=== PATIENT | female | born 1945 | race Caucasian/White ===

== ENCOUNTER → 2018-01-09 16:13 | Outpatient (CLI) | payer MEDICARE, OTHER, SELFPAY ==
--- NOTE | 2018-01-09 | IMM_PTH ---
PATIENT: ESTRELLA GRAJEDA LOC: [facility] U#:[id number] AGE/SX: 79/F ROOM: RE01/09/[address]: Dr. Jeremiah Soriano MD : 1945 BED: DIS: SPEC #: [id number] RECD: 01/13/18 11:35 STATUS: MARIBETH SHERYL #: [id number] ANTONY: 01/09/18 00:[address]: Jeremiah Soriano DEPT: IMMUNOHISTOCHEMISTRY RECD BY: Dayana Berry Tissues: Stomach, NOS Procedures: H Pylori (initial) PHYSICIAN & INSTITUTION [place] [id number] SPECIMEN INFORMATION: Tissue Source: Antrum body biopsy Clinical Info: GERD Specimen Number: [id number] CPT code: 07326 METHODOLOGY: Deparaffinized sections of prefer/formalin-fixed tissue or PAP/DQ stained slides are incubated with monoclonal/polyclonal antibodies/oligonucleotide probes. Localization is made via biotin free immunoperoxidase method. Appropriate controls are performed and reacted as expected. Results on target cell population are indicated in the following table: RESULTS: ANTIBODY / CLONE RESULT H Pylori (polyclonal) negative These tests were developed and their performance characteristics determined by [facility]. They may not have been cleared or approved by the U.S. Food and Drug Administration. The FDA has determined that such clearance or approval is not necessary. INTERPRETATION: Antrum body, biopsy: Negative for Helicobacter pylori organisms. AM:martin 01/13/18
--- NOTE | 2018-01-09 08:52 | GASB_PTH ---
PATIENT: ESTRELLA GRAJEDA LOC: [facility] U#:[id number] AGE/SX: 79/F ROOM: RE01/09/[address]: Dr. Jeremiah Soriano MD : 1945 BED: DIS: SPEC #: [id number] RECD: 01/09/18 15:33 STATUS: MARIBETH SHERYL #: [id number] ANTONY: 01/09/18 08:[address]: Jeremiah Soriano DEPT: SURGICAL PATHOLOGY RECD BY: James Boyd ENTERED: 01/10/18 12:06 SP TYPE: Gastric Bx GRACIA DR: NICANOR Tissues: Gastric mucous membrane Procedures: Surgery Specimen Level IV HEADER OPERATION: EGD with biopsies PRE-OP DIAGNOSIS: GERD TISSUE SUBMITTED: Antrum body biopsies, rule out gastritis MICROSCOPIC DIAGNOSIS Gastric antrum, biopsy: Chronic active gastritis. AM:martin 01/13/18 COMMENT The results of immunohistochemistry for Helicobacter pylori will be reported separately ([id number]). MICROSCOPIC DESCRIPTION Slides are reviewed. GROSS DESCRIPTION Received in fixative is one container labeled with the patient's name and designated gastric antrum. The specimen consists of two irregular fragments of light pratt soft tissue that in aggregate measure 0.2 x 0.1 x 0.1 cm. The specimen is totally submitted in one cassette. / AM:martin 01/10/18 TC:2 [facility]: [id number]
== END ==
PROVIDERS: Visit Provider Internal Medicine Gastroenterology
DX: K29.50 Unspecified chronic gastritis without bleeding (principal); K21.9 Gastro-esophageal reflux disease without esophagitis
CPT/HCPCS: 88305; 88342

== ENCOUNTER → 2018-02-05 10:20 | Outpatient (CLI) | payer MEDICARE, OTHER, SELFPAY ==
--- NOTE | 2018-02-05 10:25 | HPBI_ITS ---
MAMMOGRAPHY - BILATERAL SCREENING REASON FOR EXAM: Female, 72 years old. Routine annual screening examination. PERTINENT HISTORY: Sister with breast cancer. Grandmother with breast cancer. TECHNIQUE: Digital bilateral breast giovana (3D mammographic acquisition) in the CC and MLO projections. 2-D mediolateral oblique (MLO) and craniocaudad (CC) views of both breasts were obtained. CAD: Full Field Digital Mammography with Computer Added Detection was performed. COMPARISON: Comparison is made with prior study dated February 04, 2017 and January 03, 2016. FINDINGS: Breast Composition: The breasts are almost entirely fatty. There are no dominant masses or suspicious calcifications. 2 tissue markers are seen in the central portion of the left breast. No other significant abnormalities are identified. There has been no significant change since the prior study. HPBI/SCREENING MAMM (CAD), BILAT IMPRESSION: Stable bilateral screening mammogram. Yearly follow-up mammogram recommended. (A) ASSESSMENT CATEGORY: BIRADS Category 2: Benign. A letter regarding these results will be sent to the patient by the facility within 30 days. Approximately 10% of breast cancers are not detected by mammography. A normal mammogram should not delay biopsy of a clinically suspicious abnormality. [id number] Electronically Signed: Daniel Barnes MD at 12:28 EST Tel [phone], Service support ,
--- NOTE | 2018-02-05 10:28 | HPBD_ITS ---
STUDY: DUAL ENERGY X-RAY ABSORPTIOMETRY / DXA REASON FOR EXAM: Female, 72 years old. The patient is postmenopausal. Loss of height. TECHNIQUE: Bone Mineral Density (BMD) measurements of lumbar spine and bilateral hips were obtained. COMPARISON: Comparison is made with prior study dated January 03, 2016. FINDINGS: Lumbar Spine (L1-L4): g/cm2 (1.021) / T-score (-1.5) / Z-score (0.2) Findings are suggestive of osteopenia with a moderate fracture risk. Left Femur Total: g/cm2 (0.790) / T-score (-1.7) / Z-score (-0.1) Left Femoral Neck: g/cm2 (0.76) / T-score (-2.7) / Z-score (-0.1) Right Femur Total: g/cm2 (0.847) / T-score (-1.3) / Z-score (0.4) Right Femoral Neck: g/cm2 (0.769) / T-score (-1.9) / Z-score (-0.1) The T-Scores on the most recent prior examination were: Lumbar Spine (L1-L4): There has been worsening of bone density since the previous examination. Left Femur Total: which represents a worsening of 2.5%. Right Femur Total: which represents a worsening of 0.9%. HPBD/Dexa Bone Density Study (HP) IMPRESSION: The patient is considered osteopenic as outlined below according to World Octavio Organization (WHO) criteria with a moderate fracture risk. There has been worsening of bone density since the previous examination. Reference Information: The T-score is the number of standard deviations above or below the standard which is normal for young adults at their peak bone mineral density. The World Health Organization (WHO) interprets the T-scores as follows: Above -1 Normal bone density Between -1 and -2.5 Osteopenia Equal to / or below -2.5 Osteoporosis As a practical clinical guideline, osteopenia may be graded as follows: Mild -1 through -1.5 Moderate -1.6 through -2.0 Severe -2.1 through -2.4 The Z-score is the number of standard deviations above or below age-matched controls. A Z-score of less than -1.5 would be considered abnormal. References: 1. NIH Osteoporosis and Related Bone Diseases http://www.osteo.org 2. International Society for Clinical Densitometry http://www.iscd.org 3. National Osteoporosis Foundation http://www.nof.org Electronically Signed: Daniel Barnes MD at 8:36 EST Tel [phone], Service support ,
== END ==
PROVIDERS: Family Provider Internal Medicine; PCP Internal Medicine; Visit Provider Internal Medicine
DX: Z12.31 Encounter for screening mammogram for malignant neoplasm of breast (principal); Z78.0 Asymptomatic menopausal state
CPT/HCPCS: 77063; 77067; 77080

== ENCOUNTER → 2018-04-01 07:45 | Outpatient (CLI) | payer MEDICARE, OTHER, SELFPAY ==
--- NOTE | 2018-04-01 07:48 | US_ITS ---
STUDY: ABDOMINAL ULTRASOUND REASON FOR EXAM: Female, 72 years old. Abdominal bloating. TECHNIQUE: Transabdominal ultrasound was performed with real-time and static reilly scale imaging. TECHNICAL QUALITY: Adequate. Examination limited by bowel gas. COMPARISON: None. FINDINGS: Liver: The liver measures 14.5 cm. There is increased echogenicity consistent with fatty infiltration. The bile ducts are within normal limits. There is hepatic color flow. The direction of portal flow is hepatopetal. There is no demonstrated mass lesion. Portal vein measurement: 10.2 mm Gallbladder: The patient is status post cholecystectomy. Common Bile Duct (C.B.D.): The common bile duct measures 3.6 mm. Pancreas: There is incomplete visualization of the pancreas. There is normal echogenicity of the visualized pancreas. There is no demonstrated pancreatic mass or cyst. Spleen: Normal size of the spleen. The spleen measures 8.5 x 4.2 x 4.2 cm. Right Kidney: Normal size of the right kidney. The right kidney measures 11.8 x 5.5 x 5.4 cm. Normal renal cortex. The right cortex measures 1.4 cm. 1.2 x 1.2 x 1.0 cm fluid-filled structure in the hilar aspect of the upper to mid pole could be a parapelvic cyst. There is also mild pelvicalyceal ectasia, and this could be a component of the right collecting system. Left Kidney: Normal size of the left kidney. The left kidney measures 11.4 x 4.9 x 5.9 cm. Normal renal cortex. The left cortex measures 1.6 cm. There is no demonstrated renal mass or cyst. There is mild left pelvocaliectasis. Aorta: Proximal 2.0 x 1.5 cm, mid 1.6 x 1.5 cm, distal 1.4 x 1.3 cm. I.V.C.: The IVC is patent. There is no ascites. US/Abdomen Complete IMPRESSION: 1. Mild bilateral renal pelvocaliectasis. A source and level of possible low-grade partial obstruction is not demonstrated. If clinically suspicious, this might be further characterized with CT. 2. Fatty infiltration of the liver. Note focal hepatic mass. 3. Prior cholecystectomy. No bile duct dilatation. 4. Limited visualization of the pancreas due to overlying bowel gas. 5. Unremarkable spleen and great vessels. Electronically Signed: Pipe Dye MD at 14:25 EDT , Service support ,
== END ==
PROVIDERS: Family Provider Internal Medicine; PCP Internal Medicine; Visit Provider Internal Medicine
DX: R14.0 Abdominal distension (gaseous) (principal)
CPT/HCPCS: 76700

== ENCOUNTER → 2018-04-03 13:28 | Outpatient (CLI) | payer MEDICARE, OTHER, SELFPAY ==
--- NOTE | 2018-04-03 13:29 | US_ITS ---
STUDY: ULTRASOUND OF THE FEMALE PELVIS - COMPLETE REASON FOR EXAM: Female, 72 years old. Abdominal bloating. Status post hysterectomy. TECHNIQUE: Transabdominal and Transvaginal TECHNICAL QUALITY: Adequate. COMPARISON: The FINDINGS: The uterus is surgically absent. No evidence of pelvic mass. The right ovary is visualized. The right ovary measures 2 x 1.6 x 1.6 cm. cm. There is no right ovarian cyst or ovarian mass. There is no visualized right adnexal mass or complex lesion. There is normal arterial and normal venous vascularity. The left ovary is visualized. The left ovary measures 1.5 x 1.1 x 0.9 cm cm. There is no left ovarian cyst or ovarian mass. There is no visualized left adnexal mass or complex lesion. There is normal arterial and normal venous vascularity. There is no fluid in the cul-de-sac. The urinary bladder appears grossly unremarkable. Polycystic ovary disease: No. US/Pelvic (Non ) IMPRESSION: 1. Status post hysterectomy. There is no evidence of pelvic mass. 2. Normal bilateral ovaries. Electronically Signed: Quinn Biswas DO at 14:37 EDT Tel [phone], Service support ,
--- NOTE | 2018-04-03 13:48 | US_ITS ---
STUDY: ULTRASOUND OF THE FEMALE PELVIS - COMPLETE REASON FOR EXAM: Female, 72 years old. Abdominal bloating. Status post hysterectomy. TECHNIQUE: Transabdominal and Transvaginal TECHNICAL QUALITY: Adequate. COMPARISON: The FINDINGS: The uterus is surgically absent. No evidence of pelvic mass. The right ovary is visualized. The right ovary measures 2 x 1.6 x 1.6 cm. cm. There is no right ovarian cyst or ovarian mass. There is no visualized right adnexal mass or complex lesion. There is normal arterial and normal venous vascularity. The left ovary is visualized. The left ovary measures 1.5 x 1.1 x 0.9 cm cm. There is no left ovarian cyst or ovarian mass. There is no visualized left adnexal mass or complex lesion. There is normal arterial and normal venous vascularity. There is no fluid in the cul-de-sac. The urinary bladder appears grossly unremarkable. Polycystic ovary disease: No. US/Transvaginal Non- IMPRESSION: 1. Status post hysterectomy. There is no evidence of pelvic mass. 2. Normal bilateral ovaries. Electronically Signed: Quinn Biswas DO at 14:37 EDT Tel [phone], Service support ,
== END ==
PROVIDERS: Family Provider Internal Medicine; PCP Internal Medicine; Visit Provider Internal Medicine
DX: R14.0 Abdominal distension (gaseous) (principal)
CPT/HCPCS: 76830; 76856

== ENCOUNTER → 2018-09-09 12:48 | Outpatient (CLI) | payer MEDICARE, OTHER, SELFPAY ==
[2018-09-09 14:05] LABS: ALB/GLOB Ratio 1.2 RATIO (0.9-2.4); AST(SGOT) 24 U/L (15-37); Alanine Aminotransfer ALT/SGPT 38 U/L (13-56); Albumin, Serum 3.9 g/dL (3.2-5.0); Alkaline Phosphatase 63 U/L (45-117); Anion Gap 9 (5-15); BUN 15 mg/dL (7-18); BUN/Creat Ratio 22.1 RATIO (10-20); Chloride 108 mmol/L (98-107); Creatinine, Serum 0.68 mg/dL (0.55-1.02); EST Glomerular Filtration Rate 90 mL/min (>60); Est Glom Filt Rate - Afr Amer 109 mL/min (>60); Globulin 3.3 g/dL (2.2-4.2); Glucose 94 mg/dL (74-106); Potassium 4.2 mmol/L (3.5-5.1); Protein, Total 7.2 g/dL (6.4-8.2); Sodium Level 140 mmol/L (136-145)
[2018-09-09 14:09] LABS: Hemoglobin A1c 5.6 % (4.2-6.3)
[2018-09-10 04:09] LABS: HEPATITIS B SURFACE AG 6510 Negative (Negative); Hepatitis C Ab <0.1 s/co ratio (0.0-0.9)
[2018-09-10 07:37] LABS: Hep B Surface Antibodies Reactive (.)
== END ==
PROVIDERS: Family Provider Internal Medicine; PCP Internal Medicine; Referring Provider Internal Medicine; Visit Provider Internal Medicine
DX: R73.09 Other abnormal glucose (principal); Z77.21 Contact with and (suspected) exposure to potentially hazardous body fluids
CPT/HCPCS: 36415; 80053; 83036; 86706; 86803; 87340

== ENCOUNTER → 2018-09-15 12:13 | Outpatient (CLI) | payer MEDICARE, OTHER, SELFPAY ==
--- NOTE | 2018-09-15 12:17 | RAD_ITS ---
STUDY: X-RAY CHEST REASON FOR EXAM: Female, 72 years old. Cough. TECHNIQUE: PA and lateral views of the chest. COMPARISON: December 04, 2011. FINDINGS: The lungs are clear and expanded. There is no demonstrated pleural abnormality. Normal size heart. Normal mediastinum and allison. Normal visualized pulmonary arteries. There is atherosclerotic calcification of the aortic arch with tortuosity. Normal visualized thoracic spine. There is degenerative osteoarthritis of the bilateral shoulders. There is no demonstrated abnormality of the visualized soft tissue structures of the upper abdomen. RAD/Chest PA and Lateral IMPRESSION: No acute cardiopulmonary disease or major interval change. Electronically Signed: Quinn Biswas DO at 23:52 EDT Tel [phone], Service support ,
== END ==
PROVIDERS: Family Provider Internal Medicine; PCP Internal Medicine; Referring Provider Internal Medicine; Visit Provider Internal Medicine
DX: R05 Cough (principal)
CPT/HCPCS: 71046

== ENCOUNTER → 2019-03-18 16:33 | Outpatient (CLI) | payer MEDICARE, OTHER, SELFPAY ==
[2019-03-23 12:06] LABS: Rubeola IgG Ab > 300.0 AU/mL (Immune >29.9)
== END ==
PROVIDERS: Family Provider Internal Medicine; PCP Internal Medicine; Referring Provider Internal Medicine; Visit Provider Internal Medicine
DX: Z01.84 Encounter for antibody response examination (principal)
CPT/HCPCS: 36415; 86765

== ENCOUNTER → 2019-03-26 | Outpatient (CLI) | payer MEDICARE, OTHER, SELFPAY ==
--- NOTE | 2019-03-26 08:53 | US_ITS ---
STUDY: ABDOMINAL ULTRASOUND - RIGHT UPPER QUADRANT REASON FOR VISIT: Female, 73 years old. History of fatty infiltration of the liver. TECHNIQUE: Ultrasound evaluation of the right upper quadrant was performed with real-time and static reilly-scale imaging. TECHNICAL QUALITY: Adequate. COMPARISON: Comparison is made with prior study dated April 01, 2018. FINDINGS: Liver: The liver measures 13.6 cm. There is increased echogenicity consistent with fatty infiltration. The bile ducts are within normal limits. There is hepatic color flow. The direction of portal flow is hepatopetal. There is no demonstrated mass lesion. Gallbladder: The patient is status post cholecystectomy. Common Bile Duct (C.B.D.): The common bile duct measures 5.2 mm. Pancreas: Normal size of the head, body and tail of the pancreas. There is normal echogenicity of the pancreas. There is no demonstrated pancreatic mass or cyst. Right Kidney: Normal size of the right kidney. The right kidney measures 10.5 cm x 5.7 cm x 5.0 cm. Normal renal cortex. The right cortex measures 1.4 cm. Stable 1.4 cm x 1 cm x 0.9 cm right parapelvic cyst. There is no right hydronephrosis. US/Liver IMPRESSION: Fatty infiltration of the liver. Status post cholecystectomy. Right parapelvic renal cyst. Electronically Signed: Daniel Barnes, at 12:43 EDT , Service support ,
== END | disposition home or self-care (01) ==
LOC: US 08:51
PROVIDERS: Family Provider Internal Medicine; PCP Internal Medicine; Referring Provider Internal Medicine; Visit Provider Internal Medicine
DX: K76.0 Fatty (change of) liver, not elsewhere classified (principal)
CPT/HCPCS: 76705

== ENCOUNTER → 2019-04-06 | Outpatient (CLI) | payer MEDICARE, SELFPAY, OTHER ==
--- NOTE | 2019-04-06 14:43 | CT_ITS ---
STUDY: CT CHEST WITHOUT CONTRAST REASON FOR EXAM: Female, 73 years old. Calcium scoring examination. Radiological over read. RADIATION DOSAGE (If Supplied By Facility): CTDIvol = ( 12.19 ) mGy, DLP = ( 170.66 ) mGycm TECHNIQUE: Transaxial imaging was performed without the administration of intravenous contrast material. Individualized dose optimization techniques were used for this CT. COMPARISON: None. FINDINGS: There is a 4.9 mm noncalcified nodule in the right middle lobe adjacent to the right minor fissure. A dedicated CT scan of the thorax is recommended for further evaluation. There is no demonstrated pleural abnormality. Normal heart and pericardium. There are multiple small lymph nodes within the mediastinum, which are normal in size and morphology most compatible with reactive lymph hyperplasia. Normal hilar regions. Normal unenhanced pulmonary arteries. There is atherosclerotic calcification of the aortic arch. Normal osseous structures. Small hiatal hernia. Fatty infiltration of the liver. CT/Limited Chest CT w/CCTA IMPRESSION: 4.9 mm noncalcified nodule in the right middle lobe adjacent to the right minor fissure as described. Correlation with a CT scan of the chest is recommended. Electronically Signed: Daniel Barnes, at 12:47 EDT , Service support ,
[2019-04-06 14:56] VITALS: BP 111/48; PULSE 61; RESP 16; O2SAT 98; BMI 29.8
--- NOTE | 2019-04-06 16:42 | CA.SCORE ---
Calcium Scoring Date of Study:: 04/06/19 Coronary Calcium Scoring: High-resolution Computed Tomographic imaging of the chest was performed on [04/06/2019 ], with particular attention paid to the coronary arteries. Images from the examination were analyzed for the presence and extent of coronary artery calcification , using coronary calcium quantification software. The patient tolerated the procedure well and there were no complications. The results of the coronary calcification analysis are provided below. - Findings Left Main (LM): 0 Left Anterior Descending (LAD): 0 Left Circumflex (LCX): 0 Right Coronary Artery (RCA): 0 Total Agatston Score: 0 Percentile Rankin - Conclusion Calcium Scoring Interpretation: Calcium Score Interpretation 0 No identifiable atherosclerotic plaque. Very low cardiovascular disease risk. <5% chance of presence coronary artery disease A Negative Examination 1-10 Minimal Plaque burden. Significant coronary artery disease very unlikely. 11-100 Mild plaque burden. Likely mild or minimal coronary atherosclerosis. 101-400 Moderate plaque burden Moderate non-obstructive coronary artery disease highly likely. Over 400 Extensive plaque burden. High likelihood of at least one significant coronary stenosis (>50% diameter) The total calcium score (0) is below the 25th percentile for women between the ages of 70 and 74. (Exact percentile calculated to be 0%; this means 0% of the population has a similar calcium score and 99% of the population is a higher calcium score than this patient.) A full evaluation of cardiac risk should include an assessment of all conventional risk factors, and the scores and percentile rankings reported herein should be evaluated in this context.
== END | disposition home or self-care (01) ==
LOC: CT 14:37
PROVIDERS: Family Provider Internal Medicine; PCP Internal Medicine; Referring Provider Internal Medicine; Visit Provider Internal Medicine
DX: R79.82 Elevated C-reactive protein (CRP) (principal)
CPT/HCPCS: 75571; 76380

== ENCOUNTER → 2019-04-09 | Outpatient (CLI) | payer MEDICARE, OTHER, SELFPAY ==
[2019-04-06 14:56] VITALS: BMI 29.8
--- NOTE | 2019-04-09 12:23 | BI_ITS ---
MAMMOGRAPHY - BILATERAL SCREENING REASON FOR EXAM: Female, 73 years old. Routine annual screening examination. PERTINENT HISTORY: Sisters with breast cancer. TECHNIQUE: Digital bilateral breast giovana (3D mammographic acquisition) in the CC and MLO projections. 2-D mediolateral oblique (MLO) and craniocaudad (CC) views of both breasts were obtained. CAD: Full Field Digital Mammography with Computer Added Detection was performed. COMPARISON: Comparison is made with prior study of February 05, 2018 and February 04, 2017. FINDINGS: Breast Composition: The breasts are almost entirely fatty. There are no dominant masses or suspicious calcifications. Stable benign-appearing bilateral axillary lymph nodes. Once again, 2 tissue markers are seen in the central aspect of the left breast. No other significant abnormalities are identified. There has been no significant change since the prior study. BI/SCREENING MAMM (CAD), BILAT IMPRESSION: Stable bilateral screening mammogram. Yearly follow-up mammogram recommended. (A) ASSESSMENT CATEGORY: BIRADS Category 2: Benign. A letter regarding these results will be sent to the patient by the facility within 30 days. Approximately 10% of breast cancers are not detected by mammography. A normal mammogram should not delay biopsy of a clinically suspicious abnormality. [id number] Electronically Signed: Daniel Barnes, at 13:46 EDT , Service support ,
== END | disposition home or self-care (01) ==
LOC: OPBI 12:20
PROVIDERS: Family Provider Internal Medicine; PCP Internal Medicine; Referring Provider Internal Medicine; Visit Provider Internal Medicine
DX: Z12.31 Encounter for screening mammogram for malignant neoplasm of breast (principal)
CPT/HCPCS: 77063; 77067

== ENCOUNTER → 2019-04-23 | Outpatient (CLI) | payer MEDICARE, OTHER, SELFPAY ==
[2019-04-06 14:56] VITALS: BMI 29.8
--- NOTE | 2019-04-23 16:51 | CT_ITS ---
STUDY: CT CHEST WITH CONTRAST REASON FOR EXAM: Female, 73 years old. Evaluation of nodule seen on calcium score evaluate study. RADIATION DOSAGE (If Supplied By Facility): CTDIvol = ( 15.18 ) mGy, DLP = ( 645.72 ) mGycm TECHNIQUE: Transaxial imaging was performed following intravenous administration of 100 IV Isovue 300. Individualized dose optimization techniques were used for this CT. COMPARISON: None. FINDINGS: There is a chronic appearing nodule overlying the anterior aspect of the right minor fissure as seen on series 4 image 54 measuring approximately 4 mm. There is no demonstrated pleural abnormality. Normal heart and pericardium. Normal mediastinum. Normal hilar regions. Normal enhanced pulmonary arteries. Normal aorta arch and descending thoracic aorta. There are no demonstrated pulmonary emboli. Normal osseous structures. There is no demonstrated abnormality of the visualized upper abdomen. CT/Chest WITH Contrast IMPRESSION: 1. Chronic appearing 4 mm nodule as described above. In the setting of smoking recommend follow-up in approximately 4-6 months otherwise no specific follow-up per Fleischner's criteria. No evidence of acute cardiopulmonary process. Electronically Signed: Valentino Wagner DO at 10:19 EDT , Service support ,
[2019-04-23 17:06] LABS: CREATININE FINGERSTICK 0.8 mg/dL (0.55-1.02); EGFR FINGERSTICK > 60.0000 mL/min (>60)
== END | disposition home or self-care (01) ==
LOC: CT 16:50
PROVIDERS: Family Provider Internal Medicine; PCP Internal Medicine; Referring Provider Internal Medicine; Visit Provider Internal Medicine
DX: R91.1 Solitary pulmonary nodule (principal)
CPT/HCPCS: 71260; Q9967

== ENCOUNTER → 2019-05-26 | Outpatient (CLI) | payer MEDICARE, OTHER, SELFPAY ==
[2019-04-06 14:56] VITALS: BMI 29.8
--- NOTE | 2019-05-26 12:50 | RAD_ITS ---
STUDY: X-RAY - RIGHT KNEE REASON FOR EXAM: Female, 73 years old. TECHNIQUE: view(s) of the knee. COMPARISON: None. FINDINGS: There is moderate osteoarthritis involving the joint including the lateral facet of the femoropatellar joint. No joint effusion seen. The examination is unchanged since February 06, 2017 RAD/Knee 4 or More Views IMPRESSION: Moderate osteoarthritis more in the lateral facet of the patellofemoral joint Electronically Signed: Amos Godwin, at 16:41 EDT Tel , Service support ,
--- NOTE | 2019-05-26 12:50 | RAD_ITS ---
STUDY: X-RAY - LEFT KNEE REASON FOR EXAM: Female, 73 years old. TECHNIQUE: 4 view(s) of the knee. COMPARISON: None. FINDINGS: There is minimal osteoarthritis arthritis involving the knee joint. But more osteoarthritis demonstrated in the patellofemoral joint particularly the lateral facet. No joint effusion seen RAD/Knee 4 or More Views IMPRESSION: Mild osteoarthritis of the joint and more so on the patellofemoral lateral facet osteoarthritis. Electronically Signed: Amos Godwin, at 16:37 EDT Tel , Service support ,
== END | disposition home or self-care (01) ==
LOC: HPRAD 12:45
PROVIDERS: Family Provider Internal Medicine; PCP Internal Medicine; Referring Provider Internal Medicine; Visit Provider Internal Medicine
DX: M25.561 Pain in right knee (principal); M25.562 Pain in left knee
CPT/HCPCS: 73564

== ENCOUNTER → 2019-12-01 11:26 | Outpatient (CLI) | payer MEDICARE, OTHER, SELFPAY ==
[2019-04-06 14:56] VITALS: BMI 29.8
[2019-12-01 14:43] LABS: Thyroid Stim Hormone (TSH) 1.01 uIU/mL (0.358-3.74)
== END ==
PROVIDERS: Family Provider Internal Medicine; PCP Internal Medicine; Referring Provider Nurse Practitioner; Visit Provider Nurse Practitioner
DX: R22.1 Localized swelling, mass and lump, neck (principal)
CPT/HCPCS: 36415; 84443

== ENCOUNTER → 2020-04-13 09:23 | Outpatient (CLI) | payer MEDICARE, OTHER, SELFPAY ==
[2019-04-06 14:56] VITALS: BMI 29.8
--- NOTE | 2020-04-13 09:27 | RAD_ITS ---
STUDY: X-RAY - LEFT HUMERUS REASON FOR EXAM: Female, 74 years old. FALL. PAINFUL MID ARM TECHNIQUE: AP and lateral view(s) of the humerus. COMPARISON: None. FINDINGS: Normal visualized humerus. There is no demonstrated fracture or osseous destructive process. There is no demonstrated soft tissue abnormality. RAD/Humerus min 2 Views IMPRESSION: Normal x-ray examination of the humerus. Electronically Signed: Daniel Barnes, at 9:43 EDT , Service support ,
== END ==
PROVIDERS: PCP Internal Medicine; Referring Provider Internal Medicine; Visit Provider Internal Medicine
DX: M79.602 Pain in left arm (principal)
CPT/HCPCS: 73060

== ENCOUNTER → 2020-05-04 09:01 | Outpatient (CLI) | payer MEDICARE, OTHER, SELFPAY ==
[2019-04-06 14:56] VITALS: BMI 29.8
--- NOTE | 2020-05-04 09:06 | US_ITS ---
STUDY: ABDOMINAL ULTRASOUND - RIGHT UPPER QUADRANT REASON FOR VISIT: Female, 74 years old FATTY LIVER TECHNIQUE: Ultrasound evaluation of the right upper quadrant was performed with real-time and static reilly-scale imaging. TECHNICAL QUALITY: Adequate. COMPARISON: Comparison is made with prior examination dated March 26, 2019. FINDINGS: Liver: The liver measures 16.3 cm. There is increased echogenicity consistent with fatty infiltration. The bile ducts are within normal limits. There is hepatic color flow. The direction of portal flow is hepatopetal. There is no demonstrated mass lesion. Gallbladder: The patient is status post cholecystectomy. Common Bile Duct (C.B.D.): The common bile duct measures 7.6 mm. Pancreas: Normal size of the head, body of the pancreas. The tail portion is obscured due to overlying bowel gas. There is normal echogenicity of the pancreas. There is no demonstrated pancreatic mass or cyst. Right Kidney: Normal size of the right kidney. The right kidney measures 10.7 cm x 5.2 cm x 5.8 cm. Normal renal cortex. The right cortex measures 1.7 cm. There is a 1 cm x 1.1 cm x 0.8 cm parapelvic cyst. There is no right hydronephrosis. US/Liver IMPRESSION: Fatty infiltration of the liver. Status post cholecystectomy. Right parapelvic renal cyst. Electronically Signed: Daniel Barnes, at 15:12 EDT , Service support ,
--- NOTE | 2020-05-04 09:07 | BI_ITS ---
MAMMOGRAPHY - BILATERAL SCREENING REASON FOR EXAM: Female, 74 years old. Routine annual screening examination. PERTINENT HISTORY: History of prior left stereotactic breast biopsies. Sister with breast cancer. Grandmother with breast cancer. TECHNIQUE: Digital bilateral breast arik (3D mammographic acquisition) in the CC and MLO projections. 2-D mediolateral oblique (MLO) and craniocaudad (CC) views of both breasts were obtained. CAD: Full Field Digital Mammography with Computer Added Detection was performed. COMPARISON: Comparison is made with prior study dated April 09, 2019 and February 05, 2018. FINDINGS: Breast Composition: The breasts are almost entirely fatty. There are no dominant masses or suspicious calcifications. Once again, there are 2 tissue clip marker is in the central aspect of the left breast. Stable benign appearing bilateral axillary lymph nodes. No other significant abnormalities are identified. There has been no significant change since the prior study. BI/SCREEN MAMM (CAD) W/ARIK BILAT IMPRESSION: Stable bilateral screening mammogram. Yearly follow-up mammogram recommended. (A) ASSESSMENT CATEGORY: BIRADS Category 2: Benign. A letter regarding these results will be sent to the patient by the facility within 30 days. Approximately 10% of breast cancers are not detected by mammography. A normal mammogram should not delay biopsy of a clinically suspicious abnormality. [id number] Electronically Signed: Daniel Barnes, at 11:09 EDT , Service support ,
--- NOTE | 2020-05-04 09:28 | BD_ITS ---
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 COMPARISON: Comparison is made with prior study dated February 05, 2018. FINDINGS: Lumbar Spine (L1-L4): g/cm2 (0.981) / T-score (-1.8) / Z-score (-0.1) Findings are suggestive of osteopenia with a moderate fracture risk. Left Femur Total: g/cm2 (0.812) / T-score (-1.6) / Z-score (0.2) Left Femoral Neck: g/cm2 (0.793) / T-score (-1.8) / Z-score (0.2) Right Femur Total: g/cm2 (0.812) / T-score (-1.6) / Z-score (0.2) Right Femoral Neck: g/cm2 (0.753) / T-score (-2.1) / Z-score (-0.1) The T-Scores on the most recent prior examination were: Lumbar Spine (L1-L4): There has been worsening of bone density since the previous examination. Left Femur Total: which represents an improvement of 2.8%. Right Femur Total: which represents a worsening of 4.1%. BD/Dexa Bone Density Study IMPRESSION: The patient is considered osteopenic as outlined below according to World Octavio Organization (WHO) criteria with a moderate fracture risk. There has been worsening of bone density since the previous examination. Reference Information: The T-score is the number of standard deviations above or below the standard which is normal for young adults at their peak bone mineral density. The World Health Organization (WHO) interprets the T-scores as follows: Above -1 Normal bone density Between -1 and -2.5 Osteopenia Equal to / or below -2.5 Osteoporosis As a practical clinical guideline, osteopenia may be graded as follows: Mild -1 through -1.5 Moderate -1.6 through -2.0 Severe -2.1 through -2.4 The Z-score is the number of standard deviations above or below age-matched controls. A Z-score of less than -1.5 would be considered abnormal. References: 1. NIH Osteoporosis and Related Bone Diseases http://www.osteo.org 2. International Society for Clinical Densitometry http://www.iscd.org 3. National Osteoporosis Foundation http://www.nof.org Electronically Signed: Daniel Barnes, at 7:59 EDT , Service support ,
--- NOTE | 2020-05-04 10:05 | CT_ITS ---
STUDY: CT CHEST WITHOUT CONTRAST REASON FOR EXAM: Female, 74 years old. LUNG NODULE FOLLOW UP, NO NEW PROBLEMS OR PAIN RADIATION DOSAGE (If Supplied By Facility): CTDIvol = ( 12.42 ) mGy, DLP = ( 446.90 ) mGycm TECHNIQUE: Transaxial imaging was performed without the administration of intravenous contrast material. Multiplanar coronal and sagittal images were reformatted. Individualized dose optimization techniques were used for this CT. COMPARISON: Comparison is made with prior study dated April 23, 2019. FINDINGS: Small benign appearing bilateral axillary lymph nodes. Stable 4 mm noncalcified nodule adjacent to the right minor fissure. There is no demonstrated pleural abnormality. Normal heart and pericardium. There are multiple small lymph nodes within the mediastinum, which are normal in size and morphology most compatible with reactive lymph hyperplasia. Normal hilar regions. Normal unenhanced pulmonary arteries. There is atherosclerotic calcification of the aortic arch . There are multi-level degenerative changes of the thoracic spine. Small hiatal hernia. CT/Chest without Contrast IMPRESSION: Stable 4 mm nodule in the right minor fissure as described. A follow-up scan in 12 months is recommended for further evaluation. Electronically Signed: Daniel Barnes, at 14:39 EDT , Service support ,
== END ==
PROVIDERS: PCP Internal Medicine; Referring Provider Internal Medicine; Visit Provider Internal Medicine
DX: Z12.31 Encounter for screening mammogram for malignant neoplasm of breast (principal); R91.1 Solitary pulmonary nodule; K76.0 Fatty (change of) liver, not elsewhere classified; Z78.0 Asymptomatic menopausal state; M79.602 Pain in left arm
CPT/HCPCS: 71250; 76705; 77063; 77067; 77080

== ENCOUNTER → 2020-06-27 11:17 | Outpatient (CLI) | payer MEDICARE, OTHER, SELFPAY ==
[2019-04-06 14:56] VITALS: BMI 29.8
--- NOTE | 2020-06-27 11:20 | RAD_ITS ---
STUDY: X-RAY - LUMBAR SPINE REASON FOR EXAM: Female, 74 years old. LOW BACK PAIN. NUMBNESS RIGHT LEG LATERAL TECHNIQUE: 4 view(s) of the lumbar spine were obtained. COMPARISON: None FINDINGS: Normal lumbar lordosis. There is no substantial scoliosis. There is a normal alignment of the vertebrae. Is mild endplate spondylosis of L1 and L2. There is mild narrowing of the L1-2, L2-3, and L5-S1 disc spaces. The soft tissue structures are unremarkable. RAD/L/S Spine Min 4 Views IMPRESSION: Mild disc space narrowing at the L1-2, L2-3, and L5-S1 levels. Mild endplate spondylosis of L1 and L2. Electronically Signed: Darrion Richards MD at 19:22 EDT , Service support ,
== END ==
PROVIDERS: PCP Internal Medicine; Referring Provider Internal Medicine; Visit Provider Internal Medicine
DX: M54.5 Low back pain (principal)
CPT/HCPCS: 72110

== ENCOUNTER 2020-07-25 10:00 | Outpatient (RCR) | payer MEDICARE, OTHER, SELFPAY ==
[2019-04-06 14:56] VITALS: BMI 29.8
--- NOTE | 2020-06-30 13:02 | HP.PTEVAL_ITS ---
Patient's Visit Information ESTRELLA GRAJEDA is a 74 year old F referred to Physical Therapy by Dr. Sydnee Castellano DO with a diagnosis of LBP. Date of Evaluation: 06/30/20 Physical Therapist: Red Stephens, PT, ATC - Visit Plan Frequency: 2x /Week Duration: 1 Week Plan: Issue and instruct pt on HEP for core strengthening and R hip strengthening - Subjective Pt reports she has had LBP since January when her dog knocked her down. Pt notes she was exercising after that episode and was feeling better but then stopped when COVID struck. Pt reports since stopping her ex's, pt notes her pain has returned. Pt notes her pain start in the middle of her LB and will radiate into R groin and R lateral thigh. Pt notes she thinks at time that her hip is actually what is bother ing her. Pt reports occasional sleep difficulty secondary to pain. Pt reports prolonged sitting causes her pain to become worse. Pt had xrays which revealed scoliosis and OA. Pt reports standing and sitting with a lumbar support helps to ease her pain. 0/10 pain at rest, 5/10 pain at worst - Pain LBP Pain Intensity (Out of 10): 0 Pain Intensity Range: 5 - Objective Neuro: B LE sensation is WNL to lgiht touch. Achilles reflex= 2/3. ROM: Minor limitations with extension. All other motions WNL. MMT: L knee ext 4-/5 and painful. All other measurements 4+/5. Repeated movements: RFIS produced pain into R gluteal region after 10x3. FREDERICK produced the same pain 10x3. Prone prop on elbows increase R glute paiin. Special tests: Pos quadrant test R hip - Goals Goal 1:: I with HEP Goal Time Frame: 2 Weeks - Rehabilitation Potential Physical Therapy Diagnosis: Pt has LBP and R hip pain secondary to degenerative changes in those areas Rehabilitation Potential: Good - Anticipated Interventions Patient/Client Instruction: Educate patient on: Condition, Plan of Care For the Purpose of:: To improve self management Therapeutic Exercise to Include: Strength training, Body mechanics, Dynamic Lumbar Stabilization For the Purpose of:: To decrease pain, To increase ROM, To improve muscle performance and motor function Cryotherapy (ice pack, ice massage): Yes For the Purpose of:: To decrease pain Thank you for the opportunity to evaluate your patient. For Medicare and Medicare HMO plans, please review the plan of care and approve it. It will need to be FAXED BACK to us at [phone] for Medicare purposes. For Medicare only, by signing this I certify the plan of care. Please let me know if there are questions or concerns regarding this plan of care. Physician Signature: Date:
--- NOTE | 2020-07-25 10:39 | HP.PTDCSUM ---
It has been my pleasure to treat ESTRELLA GRAJEDA referred by Dr. Sydnee Castellano DO, with the diagnosis of LBP for a total of 3 visit(s). Discharge Date: Please see the following information for a summary of their discharge status. Subjective: I dont have pain most of the time LBP Pain Intensity (Out of 10): 0 % Improvement: 100 Objective/Function: Pt is now pain free and I with HEP Goal 1:: I with HEP Goal Progress: Goal Met Plan: Discharge If there are questions or concerns regarding this patient's physical therapy, please feel free to call me at [phone]. Thank you for the referral of this patient. Sincerely, Red Stephens, PT, ATC
== END 2020-07-25 19:00 | disposition home or self-care (01) ==
LOC: PT 10:00
PROVIDERS: PCP Internal Medicine; Referring Provider Internal Medicine; Visit Provider Internal Medicine
DX: M54.5 Low back pain (principal)
CPT/HCPCS: 97110; 97161; 97164

== ENCOUNTER → 2021-11-20 13:08 | Outpatient (CLI) | payer MEDICARE, OTHER, SELFPAY ==
--- NOTE | 2021-11-20 13:12 | BI_ITS ---
MAMMOGRAPHY - BILATERAL SCREENING REASON FOR EXAM: Female, 76 years old. Routine annual screening examination. PERTINENT HISTORY: Sisters with breast cancer. Grandmother with breast cancer. Remote left stereotactic breast biopsy. TECHNIQUE: Digital bilateral breast arik (3D mammographic acquisition) in the CC and MLO projections. 2-D mediolateral oblique (MLO) and craniocaudad (CC) views of both breasts were obtained. CAD: Full Field Digital Mammography with Computer Added Detection was performed. COMPARISON: Comparison is made with prior examination dated 05/04/2020 and 04/09/2019. FINDINGS: Breast Composition: The breasts are almost entirely fatty. There are no dominant masses or suspicious calcifications. Once again, 2 tissue clip markers are seen in the central aspect of the left breast. Stable small benign appearing bilateral axillary No other significant abnormalities are identified. There has been no significant change since the prior study. BI/SCRN MAMM (CAD)W/ARIK BILAT IMPRESSION: Stable bilateral screening mammogram. Yearly follow-up mammogram recommended. (A) ASSESSMENT CATEGORY: BIRADS Category 2: Benign. A letter regarding these results will be sent to the patient by the facility within 30 days. Approximately 10% of breast cancers are not detected by mammography. A normal mammogram should not delay biopsy of a clinically suspicious abnormality. [id number] Electronically Signed: Daniel Barnes MD at 14:27 EST , Service support ,
== END ==
PROVIDERS: PCP Internal Medicine; Visit Provider Internal Medicine
DX: Z12.31 Encounter for screening mammogram for malignant neoplasm of breast (principal); Z80.3 Family history of malignant neoplasm of breast
CPT/HCPCS: 77063; 77067

== ENCOUNTER 2021-12-09 09:25 | Outpatient (CLI) | payer MEDICARE, OTHER, SELFPAY ==
--- NOTE | 2021-12-09 09:36 | US_ITS ---
STUDY: ABDOMINAL ULTRASOUND - RIGHT UPPER QUADRANT REASON FOR VISIT: Female, 76 years old FATTY LIVER TECHNIQUE: Ultrasound evaluation of the right upper quadrant was performed with real-time and static reilly-scale imaging. TECHNICAL QUALITY: Adequate. COMPARISON: None. FINDINGS: Liver: The liver measures 15.2 cm. There is increased echogenicity consistent with fatty infiltration. The bile ducts are within normal limits. There is hepatic color flow. The direction of portal flow is hepatopetal. There is no demonstrated mass lesion. Gallbladder: The patient is status post cholecystectomy. Common Bile Duct (C.B.D.): The common bile duct measures 5 mm. Pancreas: The pancreas as seen on this examination is grossly unremarkable. There is normal echogenicity of the pancreas. There is no demonstrated pancreatic mass or cyst. Right Kidney: Normal size of the right kidney. The right kidney measures 10.3 cm. Normal renal cortex. The right cortex measures 0.3 cm. There is a small cyst in the right kidney measuring about 1 cm. There is no right hydronephrosis. US/Abdomen Limited IMPRESSION: 1. Echogenic liver which may reflect fatty infiltration or hepatocellular disease. 2. Status post cholecystectomy. 3. Small retrolisthesis. Electronically Signed: Agustín Daniels, at 15:54 EST Tel , Service support ,
--- NOTE | 2021-12-09 10:00 | CT_ITS ---
STUDY: CT CHEST WITHOUT CONTRAST REASON FOR EXAM: Female, 76 years old. Lung nodule RADIATION DOSAGE (If Supplied By Facility): CTDIvol = ( 11.79 ) mGy, DLP = ( 439.01 ) mGycm TECHNIQUE: Transaxial imaging was performed without the administration of intravenous contrast material. Multiplanar coronal and sagittal images were reformatted. Individualized dose optimization techniques were used for this CT. COMPARISON: CT chest April 06, 2019, May 04, 2020 FINDINGS: There is a calcified granuloma measuring 3 mm in the right upper lobe. There is a stable nodule near the right minor fissure measuring 4 mm. There is minor thickening of the right minor fissure. Stable since prior study. There is a stable punctate calcification in the left lower lobe compatible with old granulomatous disease. There is no demonstrated pleural abnormality. Normal heart and pericardium. There are a few nonspecific subcentimeter mediastinal lymph nodes stable since prior study. Normal hilar regions. Normal unenhanced pulmonary arteries. There is atherosclerotic calcification of the aortic arch with tortuosity and elongation of the aortic arch and descending thoracic aorta. There are multi-level degenerative changes of the thoracic spine. There are surgical clips in the gallbladder fossa status post cholecystectomy. There are left-sided peripelvic cyst stable since prior study. There is a small hiatal hernia. CT/Chest without Contrast IMPRESSION: Stable chest. Findings are most consistent with sequelae of prior granulomatous disease. There are a few scattered punctate calcifications in the lungs suggesting old granulomatous disease. The 4 mm right lower lobe nodule is stable and should be considered benign. Stable left peripelvic cyst. Stable small hiatal hernia. Electronically Signed: Basia Zavaleta MD at 14:45 EST Tel , Service support ,
== END 2021-12-09 23:59 | disposition short-term general hospital (02) ==
LOC: CT 09:26
PROVIDERS: PCP Internal Medicine; Referring Provider Internal Medicine; Visit Provider Internal Medicine
DX: R91.1 Solitary pulmonary nodule (principal); K76.0 Fatty (change of) liver, not elsewhere classified
CPT/HCPCS: 71250; 76705

== ENCOUNTER → 2022-04-19 | Outpatient (CLI) | payer MEDICARE, OTHER, SELFPAY ==
[2022-04-19 11:17] LABS: Lyme Ab Screen Interpretation REF LAB
[2022-04-19 12:41] LABS: Erythrocyte Sedimentation Rate 6 mm/hr (0-30)
[2022-04-19 12:57] LABS: Hemoglobin A1c 5.6 % (3.8-5.6)
[2022-04-19 13:09] LABS: CRP 3.06 mg/L (0.0-3.0); Rheumatoid Factor < 10.0 IU/mL (<15)
[2022-04-20 16:22] LABS: ANTINUCLEAR ANTIBODIES DIRECT Negative (Negative)
[2022-04-20 16:38] LABS: AFP, Tumor Marker 3.3 ng/mL (0.0-9.2); Lyme Scn Total Ab w/Rflx Negative (Negative)
== END | disposition home or self-care (01) ==
LOC: MTLAB 11:09
PROVIDERS: PCP Internal Medicine; Referring Provider Internal Medicine; Visit Provider Internal Medicine
DX: M25.50 Pain in unspecified joint (principal); R73.09 Other abnormal glucose; K76.0 Fatty (change of) liver, not elsewhere classified
CPT/HCPCS: 36415; 82105; 83036; 85652; 86038; 86140; 86431; 86618

== ENCOUNTER → 2022-05-15 | Outpatient (CLI) | payer MEDICARE, OTHER, SELFPAY ==
--- NOTE | 2022-05-15 11:09 | BD_ITS ---
STUDY: DUAL ENERGY X-RAY ABSORPTIOMETRY / DXA REASON FOR EXAM: Female, 76 years old. M810. The patient is postmenopausal. TECHNIQUE: Bone Mineral Density (BMD) measurements of lumbar spine and bilateral hips were obtained. COMPARISON: Comparison is made with prior study dated 05/04/2020. FINDINGS: Lumbar Spine (L1-L4): g/cm2 (0.882) / T-score (-1.2) / Z-score (1.2) Findings are suggestive of osteopenia with a low fracture risk. Left Femur Total: g/cm2 (0.740) / T-score (-1.7) / Z-score (0.3) Left Femoral Neck: g/cm2 (0.598) / T-score (-2.3) / Z-score (-0.1) Right Femur Total: g/cm2 (0.07) / T-score (-1.1) / Z-score (0.8) Right Femoral Neck: g/cm2 (0.602) / T-score (-2.2) / Z-score (0.0) The T-Scores on the most recent prior examination were: Lumbar Spine (L1-L4): There has been improvement of bone density since the previous examination. Left Femur Total: which represents a worsening of 1.5%. Right Femur Total: which represents an improvement of 7.3%. BD/Dexa Bone Density Study IMPRESSION: The patient is considered osteopenic as outlined below according to World Octavio Organization (WHO) criteria with a high fracture risk. There has been improvement of bone density since the previous examination. Reference Information: The T-score is the number of standard deviations above or below the standard which is normal for young adults at their peak bone mineral density. The World Health Organization (WHO) interprets the T-scores as follows: Above -1 Normal bone density Between -1 and -2.5 Osteopenia Equal to / or below -2.5 Osteoporosis As a practical clinical guideline, osteopenia may be graded as follows: Mild -1 through -1.5 Moderate -1.6 through -2.0 Severe -2.1 through -2.4 The Z-score is the number of standard deviations above or below age-matched controls. A Z-score of less than -1.5 would be considered abnormal. References: 1. NIH Osteoporosis and Related Bone Diseases www osteo.org 2. International Society for Clinical Densitometry www iscd.org 3. National Osteoporosis Foundation www nof.org Electronically Signed: Daniel Barnes MD at 12:29 EDT ,
== END | disposition home or self-care (01) ==
LOC: OPBD 11:05
PROVIDERS: PCP Internal Medicine; Referring Provider Internal Medicine; Visit Provider Internal Medicine
DX: M81.0 Age-related osteoporosis without current pathological fracture (principal)
CPT/HCPCS: 77080

== ENCOUNTER → 2022-11-28 | Outpatient (CLI) | payer MEDICARE, OTHER, SELFPAY ==
--- NOTE | 2022-11-28 12:14 | BI_ITS ---
MAMMOGRAPHY - BILATERAL SCREENING REASON FOR EXAM: Female, 77 years old. Routine annual screening examination. PERTINENT HISTORY: Sisters with breast cancer. Grandmother with breast cancer. Remote left stereotactic breast biopsy. TECHNIQUE: Digital bilateral breast arik (3D mammographic acquisition) in the CC and MLO projections. 2-D mediolateral oblique (MLO) and craniocaudad (CC) views of both breasts were obtained. CAD: Full Field Digital Mammography with Computer Added Detection was performed. COMPARISON: 11/20/2021, 05/04/2020. FINDINGS: Breast Composition: There are scattered areas of fibroglandular density. There are no dominant masses or suspicious calcifications. Stable left breast biopsy markers. Stable small benign-appearing bilateral axillary lymph nodes. No other significant abnormalities are identified. There has been no significant change since the prior study. BI/SCRN MAMM (CAD)W/ARIK BILAT IMPRESSION: Stable bilateral screening mammogram. Yearly follow-up mammogram recommended. (A) ASSESSMENT CATEGORY: BIRADS Category 2: Benign. A letter regarding these results will be sent to the patient by the facility within 30 days. Approximately 10% of breast cancers are not detected by mammography. A normal mammogram should not delay biopsy of a clinically suspicious abnormality. Electronically Signed: Dima Fuentes, at 11:17 EST ,
== END | disposition home or self-care (01) ==
LOC: OPBI 12:12
PROVIDERS: PCP Internal Medicine; Visit Provider Internal Medicine
DX: Z12.31 Encounter for screening mammogram for malignant neoplasm of breast (principal); Z80.3 Family history of malignant neoplasm of breast
CPT/HCPCS: 77063; 77067

== ENCOUNTER → 2022-11-30 | Outpatient (CLI) | payer MEDICARE, OTHER, SELFPAY ==
--- NOTE | 2022-11-30 14:02 | VDLE_ITS ---
Reason For Study: RLE PAIN RIGHT GSV is normal. CFV is compressible, spontaneous, phasic, competent and demonstrates normal augmentation. FV is compressible, spontaneous, phasic, competent and demonstrates normal augmentation. POP V is compressible, spontaneous, phasic, competent and demonstrates normal augmentation. T/P Trunk is compressible. PTV is compressible. RT PerV is compressible. Procedure This is a venous duplex using B-mode, color flow and spectral Doppler. Exam performed in department. The exam was diagnostic. A preliminary report was called and/or faxed to [facility] @ [phone] @ 2:45pm. VL/Venous Duplex US, Unilateral Interpretation Summary Deep veins of the right lower extremity are patent and compressible segmentally . There is no evidence of right lower extremity deep vein thrombosis. The right great [place] us vein appears patent and compressible segmentally. Ordering Physician: Aretha Thakur Referring Physician: Sydnee Castellano Performed By: Brandy Aguila, GEORGES, RVT
== END | disposition home or self-care (01) ==
LOC: CVS 14:00
PROVIDERS: PCP Internal Medicine; Visit Provider Internal Medicine
DX: M79.661 Pain in right lower leg (principal)
CPT/HCPCS: 93971

== ENCOUNTER → 2022-12-07 | Outpatient (CLI) | payer MEDICARE, OTHER, SELFPAY ==
--- NOTE | 2022-12-07 10:27 | US_ITS ---
STUDY: ABDOMINAL ULTRASOUND - RIGHT UPPER QUADRANT REASON FOR VISIT: Female, 77 years old fatty liver -- fatty liver TECHNIQUE: Ultrasound evaluation of the right upper quadrant was performed with real-time and static reilly-scale imaging. TECHNICAL QUALITY: Adequate. COMPARISON: Comparison is made with prior study dated 12/09/2021. FINDINGS: Liver: The liver measures 15.8 cm. There is increased echogenicity consistent with fatty infiltration. The bile ducts are within normal limits. There is hepatic color flow. The direction of portal flow is hepatopetal. There is no demonstrated mass lesion. Gallbladder: The patient is status post cholecystectomy. Common Bile Duct (C.B.D.): The common bile duct measures 8 mm. Pancreas: There is nonvisualization of the pancreas due to overlying bowel gas. Right Kidney: Normal size of the right kidney. The right kidney measures 9.9 cm x 4.7 cm x 4.7 cm. Normal renal cortex. The right cortex measures 1.1 cm. There is a 1.5 cm x 1.4 cm x 1.1 cm cyst. There is no right hydronephrosis. US/Abdomen Limited IMPRESSION: Fatty infiltration of the liver. Status post cholecystectomy. Small right renal cyst. Electronically Signed: Daniel Barnes MD at 14:08 EST ,
== END | disposition home or self-care (01) ==
LOC: US 10:24
PROVIDERS: PCP Internal Medicine; Visit Provider Internal Medicine
DX: K76.0 Fatty (change of) liver, not elsewhere classified (principal)
CPT/HCPCS: 76705

== ENCOUNTER → 2023-05-09 | Outpatient (CLI) | payer MEDICARE, OTHER, SELFPAY ==
[2023-05-09 15:32] LABS: Basophil# 0.04 X10^3/uL; Basophil% 0.7 % (0-1); Eosinophil# 0.34 X10^3/uL; Eosinophils% 5.8 % (0-5); Hemoglobin 14.1 g/dL (12.0-15.0); Lymphocyte % 18.6 % (19-41); Mean Corpuscular Hgb 29.5 pg (27.0-32.0); Mean Corpuscular Volume 92.1 fL (81-99); Mean Platelet Vol. 9.4 fl (6.2-12.0); Monocyte# 0.45 X10^3/uL; Monocyte% 7.6 % (0-10); NRBC Flagged by Analyzer 0 % (0-5); Neutrophil # 3.95 X10^3/uL (2.7-7.7); Platelet Count 271 K/mm3 (150-450); RBC Distribution Width CV 13.4 % (11.6-14.6); RBC Distribution Width SD 45.8 fl (35.1-43.9); Red Blood Count 4.78 M/mm3 (4.2-5.4); White Blood Count 5.9 K/mm3 (4.4-11.0)
[2023-05-09 15:49] LABS: Hemoglobin A1c 5.7 % (3.8-5.6)
[2023-05-09 15:58] LABS: ALB/GLOB Ratio 1.1 RATIO (0.9-2.4); AST(SGOT) 24 U/L (15-37); Alanine Aminotransfer ALT/SGPT 33 U/L (13-56); Albumin, Serum 3.7 g/dL (3.2-5.0); Alkaline Phosphatase 59 U/L (45-117); Anion Gap 4 (5-15); BUN 13 mg/dL (7-18); BUN/Creat Ratio 19.4 RATIO (10-20); CRP, High Sensitivity Cardiac 1.62 mg/L; Calcium,Total 9.4 mg/dL (8.5-10.1); Chloride 111 mmol/L (98-107); Creatinine, Serum 0.67 mg/dL (0.55-1.02); EST Glomerular Filtration Rate 90 mL/min (>60); Est Glom Filt Rate - Afr Amer 109 mL/min (>60); Globulin 3.3 g/dL (2.2-4.2); Glucose 96 mg/dL (74-106); Potassium 4.1 mmol/L (3.5-5.1); Sodium Level 139 mmol/L (136-145)
[2023-05-11 09:08] LABS: AFP, Tumor Marker 3.1 ng/mL (0.0-9.2)
== END | disposition home or self-care (01) ==
LOC: MTLAB 11:39
PROVIDERS: PCP Internal Medicine; Referring Provider Internal Medicine; Visit Provider Internal Medicine
DX: R73.09 Other abnormal glucose (principal); K76.0 Fatty (change of) liver, not elsewhere classified; R79.82 Elevated C-reactive protein (CRP); R91.1 Solitary pulmonary nodule
CPT/HCPCS: 36415; 80053; 82105; 83036; 85025; 86141

== ENCOUNTER → 2023-06-19 | Outpatient (CLI) | payer MEDICARE, OTHER, SELFPAY | END | disposition home or self-care (01) | LOC: LABSPEC 15:26 | PROVIDERS: PCP Internal Medicine; Referring Provider Nurse Practitioner Family; Visit Provider Nurse Practitioner Family | DX: J02.9 Acute pharyngitis, unspecified (principal) | CPT/HCPCS: 87070 ==

== ENCOUNTER → 2023-07-09 | Outpatient (CLI) | payer MEDICARE, OTHER, SELFPAY ==
--- NOTE | 2023-07-09 11:36 | CT_ITS ---
STUDY: CT ABDOMEN AND PELVIS WITHOUT CONTRAST REASON FOR EXAM: Female, 77 years old. STAT, stone protocol, right flank pain -- STAT, stone protocol, right flank pain RADIATION DOSAGE (If Supplied By Facility): CTDIvol = ( 9.79 ) mGy, DLP = ( 501.51 ) mGycm TECHNIQUE: Transaxial images were obtained from the dome of the diaphragm to the symphysis pubis without oral contrast, and without intravenous contrast. Sagittal and coronal images were reconstructed. Individualized dose optimization techniques were used for this CT. COMPARISON: None. FINDINGS: The visualized lung bases are unremarkable. The visualized portions of the heart are within normal limits. Normal liver. There are surgical clips in the gallbladder fossa consistent with a prior cholecystectomy. Normal spleen. Normal pancreas. Normal bilateral adrenal glands. Small punctate nonobstructive calculus in the lower pole calyx of the right kidney. There are small bilateral parapelvic renal cysts. There is a small hiatal hernia. Normal small intestine. Normal colon. Prior appendectomy. There is scattered atherosclerotic calcification of the abdominal aorta, without a demonstrated aneurysm. Normal inferior vena cava. Normal retroperitoneum. Normal urinary bladder. There is absence of the uterus consistent with a prior hysterectomy. There is a small umbilical hernia containing fat. Mild degree of disc space narrowing at the L5-S1 level. CT/Abdomen/Pelvis without Cont IMPRESSION: Parapelvic renal cysts. No obstructive uropathy is seen at this time. Electronically Signed: Daniel Barnes MD at 12:24 EDT ,
[2023-07-09 12:55] LABS: Absolute Neutrophil Count 5.5 X10^3/uL (2.0-7.7); Basophil# 0.04 X10^3/uL; Basophil% 0.5 % (0-1); Eosinophil# 0.35 X10^3/uL; Eosinophils% 4.6 % (0-5); Hematocrit 40.1 % (37-47); Hemoglobin 13.6 g/dL (12.0-15.0); Lymphocyte % 13.2 % (19-41); Mean Corp Hgb Conc 33.9 g/dL (32-36); Mean Corpuscular Hgb 30.6 pg (27.0-32.0); Mean Corpuscular Volume 90.3 fL (81-99); Mean Platelet Vol. 8.9 fl (6.2-12.0); Monocyte# 0.63 X10^3/uL; Monocyte% 8.3 % (0-10); NRBC Flagged by Analyzer 0 % (0-5); Neutrophil # 5.52 X10^3/uL (2.7-7.7); Neutrophil % 73.1 % (47-70); Platelet Count 237 K/mm3 (150-450); RBC Distribution Width CV 13.6 % (11.6-14.6); RBC Distribution Width SD 45.7 fl (35.1-43.9); Red Blood Count 4.44 M/mm3 (4.2-5.4); White Blood Count 7.6 K/mm3 (4.4-11.0)
[2023-07-09 13:21] LABS: ALB/GLOB Ratio 1.2 RATIO (0.9-2.4); AST(SGOT) 17 U/L (15-37); Alanine Aminotransfer ALT/SGPT 32 U/L (13-56); Albumin, Serum 3.4 g/dL (3.2-5.0); Alkaline Phosphatase 62 U/L (45-117); Anion Gap 6 (5-15); BUN 16 mg/dL (7-18); BUN/Creat Ratio 22.1 RATIO (10-20); Calcium,Total 9.7 mg/dL (8.5-10.1); Chloride 106 mmol/L (98-107); Creatinine, Serum 0.72 mg/dL (0.55-1.02); EST Glomerular Filtration Rate 83 mL/min (>60); Est Glom Filt Rate - Afr Amer 100 mL/min (>60); Globulin 2.9 g/dL (2.2-4.2); Glucose 92 mg/dL (74-106); Potassium 4.1 mmol/L (3.5-5.1); Protein, Total 6.3 g/dL (6.4-8.2); Sodium Level 140 mmol/L (136-145)
== END | disposition home or self-care (01) ==
PROVIDERS: PCP Internal Medicine; Referring Provider Internal Medicine; Visit Provider Internal Medicine
DX: R10.9 Unspecified abdominal pain (principal)
CPT/HCPCS: 74176; 80053; 85025

== ENCOUNTER → 2023-07-29 | Outpatient (CLI) | payer MEDICARE, OTHER, SELFPAY ==
[2023-08-01 13:07] LABS: Alternaria tenuis <0.10 kU/L (Class 0); Ash, White 1.41 kU/L (Class III); Aspergillus fumigatus <0.10 kU/L (Class 0); Bermuda Grass 0.88 kU/L (Class II); Black Walnut 0.67 kU/L (Class II); Cat Hair / Dander,Stand 1.77 kU/L (Class III); Cedar, Mountain 0.17 kU/L (Class 0/I); Cladosporium herbarum <0.10 kU/L (Class 0); Clam 0.15 kU/L (Class 0/I); Cockroach, American 0.18 kU/L (Class 0/I); Codfish <0.10 kU/L (Class 0); Corn 0.25 kU/L (Class 0/I); D farinae Mite <0.10 kU/L (Class 0); D pteronyssinus <0.10 kU/L (Class 0); Dog Epithelia 2.83 kU/L (Class III); Egg, White <0.10 kU/L (Class 0); Elm, American White 0.82 kU/L (Class II); Gluten 0.11 kU/L (Class 0/I); Goose Feathers <0.10 kU/L (Class 0); Immunoglobulin E 337 IU/mL (6-495); Milk (Cow) 0.25 kU/L (Class 0/I); Mouse Urine 1.12 kU/L (Class II); Mulberry, White 0.11 kU/L (Class 0/I); Oak, White 5.23 kU/L (Class IV); Oat 0.21 kU/L (Class 0/I); Peanut 1.88 kU/L (Class III); Pecan 0.61 kU/L (Class II); Penicillium Notatum <0.10 kU/L (Class 0); Pigweed, Rough 0.17 kU/L (Class 0/I); Ragweed, False 0.32 kU/L (Class I); Ragweed, Short/Common 1.76 kU/L (Class III); Russian Thistle 0.28 kU/L (Class 0/I); SESAME SEED 0.18 kU/L (Class 0/I); Sheep Sorrel 0.19 kU/L (Class 0/I); Shrimp <0.10 kU/L (Class 0); Soybean 0.12 kU/L (Class 0/I); Strawberry 0.12 kU/L (Class 0/I); Sycamore, American 0.29 kU/L (Class 0/I); Timothy Grass 6.95 kU/L (Class IV); Tomato 0.27 kU/L (Class 0/I); Walnut, (Food) 0.11 kU/L (Class 0/I); Wheat 0.36 kU/L (Class I)
== END | disposition home or self-care (01) ==
PROVIDERS: PCP Internal Medicine; Referring Provider Otolaryngology Otolaryngology/Facial Plastic Surgery; Visit Provider Otolaryngology Otolaryngology/Facial Plastic Surgery
DX: T78.40XA Allergy, unspecified, initial encounter (principal); X58.XXXA Exposure to other specified factors, initial encounter
CPT/HCPCS: 36415; 82785; 86003

== ENCOUNTER → 2023-12-17 | Outpatient (CLI) | payer MEDICARE, OTHER, SELFPAY ==
--- NOTE | 2023-12-17 08:35 | BI_ITS ---
MAMMOGRAPHY - BILATERAL SCREENING REASON FOR EXAM: Female, 78 years old. Routine annual screening examination. PERTINENT HISTORY: Sisters with breast cancer. Grandmother with breast cancer. History of prior left stereotactic breast biopsies. TECHNIQUE: Digital bilateral breast arik (3D mammographic acquisition) in the CC and MLO projections. 2-D mediolateral oblique (MLO) and craniocaudad (CC) views of both breasts were obtained. CAD: Full Field Digital Mammography with Computer Added Detection was performed. COMPARISON: Comparison is made with prior study dated November 28, 2022 and November 20, 2021. FINDINGS: Breast Composition: There are scattered areas of fibroglandular density. There are no dominant masses or suspicious calcifications. Once again, 2 tissue markers are seen in the central portion of the left breast. No other significant abnormalities are identified. There has been no significant change since the prior study. BI/SCRN MAMM (CAD)W/ARIK BILAT IMPRESSION: Stable bilateral screening mammogram. Yearly follow-up mammogram recommended. (A) ASSESSMENT CATEGORY: BIRADS Category 2: Benign. A letter regarding these results will be sent to the patient by the facility within 30 days. Approximately 10% of breast cancers are not detected by mammography. A normal mammogram should not delay biopsy of a clinically suspicious abnormality. [id number] Electronically Signed: Daniel Barnes MD at 9:25 EST ,
--- NOTE | 2023-12-17 09:09 | US_ITS ---
STUDY: ABDOMINAL ULTRASOUND - RIGHT UPPER QUADRANT; ELASTOGRAPHY REASON FOR VISIT: Female, 78 years old. Fatty infiltration of the liver. TECHNIQUE: Ultrasound evaluation of the right upper quadrant was performed with real-time and static reilly-scale imaging. Point quantification shear wave elastography was performed ([employer]). TECHNICAL QUALITY: Adequate. COMPARISON: Comparison is made with prior study dated December 07, 2022. FINDINGS: Liver: The liver measures 14.8 cm. There is increased echogenicity consistent with fatty infiltration. The bile ducts are within normal limits. There is hepatic color flow. The direction of portal flow is hepatopetal. There is no demonstrated mass lesion. Median liver stiffness measured 9.8 kPa. Gallbladder: The patient is status post cholecystectomy. Common Bile Duct (C.B.D.): The common bile duct measures 5.9 mm. Pancreas: There is normal echogenicity of the visualized pancreas. There is no demonstrated pancreatic mass or cyst. Right Kidney: Normal size of the right kidney. The right kidney measures 10.7 cm x 5.1 cm x 5.2 cm. Normal renal cortex. The right cortex measures 1.1 cm. There is a 1.8 cm x 1.4 cm x 1.3 cm cyst in the midportion of the right kidney. There is no right hydronephrosis. US/ABD Limited w/ Elastography IMPRESSION: 1. Liver stiffness measures 9.8 kPa compatible with F2-F3 (Mild to moderate liver fibrosis) Metavir score. Electronically Signed: Daniel Barnes MD at 10:28 EST ,
== END | disposition home or self-care (01) ==
LOC: US 08:35
PROVIDERS: PCP Internal Medicine; Referring Provider Internal Medicine; Visit Provider Internal Medicine
DX: Z12.31 Encounter for screening mammogram for malignant neoplasm of breast (principal); K76.0 Fatty (change of) liver, not elsewhere classified; Z80.3 Family history of malignant neoplasm of breast
CPT/HCPCS: 76705; 76981; 77063; 77067

== ENCOUNTER → 2024-03-16 | Outpatient (CLI) | payer MEDICARE, OTHER, SELFPAY ==
[2024-03-16 13:25] LABS: ALB/GLOB Ratio 1.4 RATIO (0.9-2.4); AST(SGOT) 20 U/L (15-37); Alanine Aminotransfer ALT/SGPT 23 U/L (13-56); Albumin, Serum 4.1 g/dL (3.2-5.0); Alkaline Phosphatase 36 U/L (45-117); Anion Gap 4 (5-15); BUN 16 mg/dL (7-18); BUN/Creat Ratio 21.2 RATIO (10-20); Calcium,Total 9.2 mg/dL (8.5-10.1); Chloride 110 mmol/L (98-107); Creatinine, Serum 0.75 mg/dL (0.55-1.02); EST Glomerular Filtration Rate 79 mL/min (>60); Est Glom Filt Rate - Afr Amer 95 mL/min (>60); Globulin 2.9 g/dL (2.2-4.2); Glucose 105 mg/dL (74-106); Sodium Level 142 mmol/L (136-145)
[2024-03-16 13:29] LABS: Vitamin D,25 Hydroxy 65.7 ng/mL
[2024-03-16 13:44] LABS: Hemoglobin A1c 5.6 % (3.8-5.6)
[2024-03-17 04:07] LABS: AFP, Tumor Marker 3.6 ng/mL (0.0-9.2)
== END | disposition home or self-care (01) ==
PROVIDERS: PCP Internal Medicine; Referring Provider Internal Medicine; Visit Provider Internal Medicine
DX: K76.0 Fatty (change of) liver, not elsewhere classified (principal); K74.00 Hepatic fibrosis, unspecified; R73.09 Other abnormal glucose; M81.0 Age-related osteoporosis without current pathological fracture
CPT/HCPCS: 36415; 80053; 82105; 82306; 83036

== ENCOUNTER → 2024-11-09 | Outpatient (CLI) | payer MEDICARE, OTHER, SELFPAY ==
--- NOTE | 2024-11-09 16:38 | RAD_ITS ---
STUDY: X-RAY - RIGHT KNEE REASON FOR EXAM: Female, 79 years old. Right knee xray, weight bearing - right knee pain -- right knee xray, weight baring - right knee pain. TECHNIQUE: 4 views of the right knee. COMPARISON: Right knee radiographs dated 02/06/2017 and 05/26/2019. FINDINGS: Normal visualized distal femur. Normal visualized proximal tibia and fibula. Normal proximal tibiofibular articulation. There is persistent mild degenerative arthrosis of the medial femorotibial compartment. There is persistent mild degenerative arthrosis of the lateral femorotibial compartment. There is persistent mild degenerative arthrosis of the patellofemoral articulation. There is mild chondrocalcinosis of the medial and lateral menisci. There is a small joint effusion. The soft tissue structures are unremarkable. RAD/Knee 4 or More Views IMPRESSION: Mild chondrocalcinosis of the medial and lateral menisci. Persistent mild tricompartment degenerative arthrosis. Small joint effusion. Electronically Signed: Siddhartha Diamond MD at 13:27 EST ,
== END | disposition home or self-care (01) ==
LOC: MTRAD 16:23
PROVIDERS: PCP Internal Medicine; Referring Provider Internal Medicine; Visit Provider Internal Medicine
DX: M25.561 Pain in right knee (principal)
CPT/HCPCS: 73564

== ENCOUNTER → 2024-12-09 | Outpatient (CLI) | payer MEDICARE, OTHER, SELFPAY ==
--- NOTE | 2024-12-09 09:26 | US_ITS ---
STUDY: ABDOMINAL ULTRASOUND - RIGHT UPPER QUADRANT; ELASTOGRAPHY REASON FOR VISIT: Female, 79 years old. Hepatic fibrosis. TECHNIQUE: Ultrasound evaluation of the right upper quadrant was performed with real-time and static reilly-scale imaging. Point quantification shear wave elastography was performed ([facility] ) TECHNICAL QUALITY: Adequate. COMPARISON: Comparison is made with prior study dated December 17, 2023. FINDINGS: Liver: The liver measures 14.1 cm. There is increased echogenicity consistent with fatty infiltration. The bile ducts are within normal limits. There is hepatic color flow. The direction of portal flow is hepatopetal. There is no demonstrated mass lesion. Median liver stiffness measured 8.7 kPa. Gallbladder: The patient is status post cholecystectomy. Common Bile Duct (C.B.D.): The common bile duct measures 7.7 mm. Pancreas: There is increased echogenicity of the pancreas. There is no demonstrated pancreatic mass or cyst. Right Kidney: Normal size of the right kidney. The right kidney measures 10.3 cm x 5.8 cm x 5.1 cm. Normal renal cortex. The right cortex measures 1.0 cm. Stable 1.4 cm x 1.7 cm right renal cyst. There is no right hydronephrosis. US/ABD Limited w/ Elastography IMPRESSION: 1. Liver stiffness measures 8.7 kPa compatible with F2-F3 (Mild to moderate liver fibrosis) Metavir score. Electronically Signed: Daniel Barnes MD at 14:15 EST ,
== END | disposition home or self-care (01) ==
LOC: US 09:25
PROVIDERS: PCP Internal Medicine; Referring Provider Internal Medicine; Visit Provider Internal Medicine
DX: K74.00 Hepatic fibrosis, unspecified (principal)
CPT/HCPCS: 76705; 76981

== ENCOUNTER → 2024-12-23 | Outpatient (CLI) | payer MEDICARE, OTHER, SELFPAY ==
--- NOTE | 2024-12-23 14:51 | BI_ITS ---
MAMMOGRAPHY - BILATERAL SCREENING REASON FOR EXAM: Female, 79 years old. Routine annual screening examination. PERTINENT HISTORY: Sister with breast cancer. Grandmother with breast cancer. History of prior left stereotactic breast biopsy. TECHNIQUE: Digital bilateral breast arik (3D mammographic acquisition) in the CC and MLO projections. 2-D mediolateral oblique (MLO) and craniocaudad (CC) views of both breasts were obtained. CAD: Full Field Digital Mammography with Computer Added Detection was performed. COMPARISON: Comparison is made with prior study dated December 17, 2023 and November 28, 2022. FINDINGS: Breast Composition: There are scattered areas of fibroglandular density. There are no dominant masses or suspicious calcifications. Once again, 2 tissue markers are seen in the central portion of the left breast. Stable fat-containing bilateral axillary lymph nodes. No other significant abnormalities are identified. There has been no significant change since the prior study. BI/SCRN MAMM (CAD)W/ARIK BILAT IMPRESSION: Stable bilateral screening mammogram. Yearly follow-up mammogram recommended. (A) ASSESSMENT CATEGORY: BIRADS Category 2: Benign. A letter regarding these results will be sent to the patient by the facility within 30 days. Approximately 10% of breast cancers are not detected by mammography. A normal mammogram should not delay biopsy of a clinically suspicious abnormality. [id number] Electronically Signed: Daniel Barnes MD at 9:23 EST ,
--- NOTE | 2024-12-23 14:56 | BD_ITS ---
STUDY: DUAL ENERGY X-RAY ABSORPTIOMETRY / DXA REASON FOR EXAM: Female, 79 years old. 627.8Menopausal postmenopausal BONE DENSITY REASON FOR EXAM -- DEXA - postmenopausal. Due in dec TECHNIQUE: Bone Mineral Density (BMD) measurements of lumbar spine and bilateral hips were obtained. COMPARISON: Comparison is made with prior study dated May 15, 2022. FINDINGS: Lumbar Spine (L1-L4): g/cm2 (0.947) / T-score (-0.9) / Z-score (1.8) Findings are suggestive of normal bone density with a low fracture risk. Left Femur Total: g/cm2 (0.759) / T-score (-1.5) / Z-score (0.6) Left Femoral Neck: g/cm2 (0.646) / T-score (-1.8) / Z-score (0.5) Right Femur Total: g/cm2 (0.808) / T-score (-1.1) / Z-score (1.0) Right Femoral Neck: g/cm2 (0.557) / T-score (-2.6) / Z-score (-0.3) The T-Scores on the most recent prior examination were: Lumbar Spine (L1-L4): There has been improvement of bone density since the previous examination. Left Femur Total: which represents an improvement of 2.6%. Right Femur Total: which represents an improvement of 0.1%. BD/Dexa Bone Density Study IMPRESSION: The patient is considered osteoporotic as outlined below according to World [employer] Organization (WHO) criteria with a high fracture risk. There has been improvement of bone density since the previous examination. Reference Information: The T-score is the number of standard deviations above or below the standard which is normal for young adults at their peak bone mineral density. The World Health Organization (WHO) interprets the T-scores as follows: Above -1 Normal bone density Between -1 and -2.5 Osteopenia Equal to / or below -2.5 Osteoporosis As a practical clinical guideline, osteopenia may be graded as follows: Mild -1 through -1.5 Moderate -1.6 through -2.0 Severe -2.1 through -2.4 The Z-score is the number of standard deviations above or below age-matched controls. A Z-score of less than -1.5 would be considered abnormal. References: 1. NIH Osteoporosis and Related Bone Diseases www osteo.org 2. International Society for Clinical Densitometry www iscd.org 3. National Osteoporosis Foundation www nof.org Electronically Signed: Daniel Barnes MD at 11:25 EST ,
== END | disposition home or self-care (01) ==
LOC: OPBD 14:49
PROVIDERS: PCP Internal Medicine; Referring Provider Internal Medicine; Visit Provider Internal Medicine
DX: Z12.31 Encounter for screening mammogram for malignant neoplasm of breast (principal); Z78.0 Asymptomatic menopausal state; M81.0 Age-related osteoporosis without current pathological fracture
CPT/HCPCS: 77063; 77067; 77080

== ENCOUNTER → 2025-03-18 | Outpatient (CLI) | payer MEDICARE, OTHER, SELFPAY ==
[2025-03-18 13:13] LABS: Hemoglobin A1c 5.8 % (<=5.6)
[2025-03-18 13:16] LABS: Microalbumin,Random Urine < 12.0 mg/L (NO RANGE EST.); Microalbumin:Creatinine Ratio UNABLE TO CALCULATE mg/g CRE
[2025-03-18 13:33] LABS: ALB/GLOB Ratio 1.7 RATIO (0.9-2.4); AST(SGOT) 18 U/L (<=31); Alanine Aminotransfer ALT/SGPT 14 U/L (<=34); Alkaline Phosphatase 37 U/L (35-104); Anion Gap 9 (5-15); BUN 13 mg/dL (4-19); BUN/Creat Ratio 18.2 RATIO (10-20); Calcium,Total 9.5 mg/dL (7.6-11.0); Carbon Dioxide 25.5 mmol/L (21.0-32.0); Chloride 107 mmol/L (98-108); Creatinine, Serum 0.71 mg/dL (0.70-1.20); EST Glomerular Filtration Rate 87 (>60); Globulin 2.4 g/dL (2.2-4.2); Glucose 104 mg/dL (70-99); Protein, Total 6.5 g/dL (5.9-8.4); Sodium Level 141 mmol/L (133-145); Total Bilirubin 0.43 mg/dL (0.00-1.30)
[2025-03-18 13:34] LABS: Vitamin D,25 Hydroxy 46.1 ng/mL (30-100)
[2025-03-19 04:07] LABS: CRP, High Sensitivity 1.46 mg/L (0.00-3.00)
== END | disposition home or self-care (01) ==
LOC: MTLAB 09:44
PROVIDERS: PCP Internal Medicine; Referring Provider Internal Medicine; Visit Provider Internal Medicine
DX: K76.0 Fatty (change of) liver, not elsewhere classified (principal); R79.82 Elevated C-reactive protein (CRP); R73.09 Other abnormal glucose; M85.80 Other specified disorders of bone density and structure, unspecified site
CPT/HCPCS: 36415; 80053; 82043; 82105; 82306; 82570; 83036; 86141

== ENCOUNTER → 2025-07-21 | Outpatient (CLI) | payer MEDICARE, OTHER, SELFPAY ==
[2025-07-21 12:31] LABS: Hematocrit 41.1 % (37-47); Hemoglobin 13.8 g/dL (12.0-15.0); Immature Granulocytes Count 0.020 X10^3/uL (0.0-0.0); Mean Corp Hgb Conc 33.6 g/dL (32-36); Mean Corpuscular Volume 88.8 fL (81-99); Mean Platelet Vol. 8.7 fl (6.2-12.0); NRBC Flagged by Analyzer 0 % (0-5); Platelet Count 248 K/mm3 (150-450); RBC Distribution Width CV 13.5 % (11.6-14.6); RBC Distribution Width SD 43.8 fl (35.1-43.9); Red Blood Count 4.63 M/mm3 (4.2-5.4); White Blood Count 5.2 K/mm3 (4.4-11.0)
[2025-07-21 13:00] LABS: Creatinine, Urine (random) 47.90 mg/dL (28.00-217.00); Microalbumin,Random Urine 16.7 mg/L (<20 mg/L)
[2025-07-21 13:23] LABS: AST(SGOT) 21 U/L (<=31); Alanine Aminotransfer ALT/SGPT 17 U/L (<=34); Albumin, Serum 3.9 g/dL (3.4-4.8); Alkaline Phosphatase 41 U/L (35-104); Anion Gap 11 (5-15); BUN 14 mg/dL (4-19); BUN/Creat Ratio 19.9 RATIO (10-20); Calcium,Total 9.4 mg/dL (7.6-11.0); Carbon Dioxide 23.3 mmol/L (21.0-32.0); Chloride 107 mmol/L (98-108); Globulin 2.6 g/dL (2.2-4.2); Glucose 109 mg/dL (70-99); Potassium 4.1 mmol/L (3.3-5.1); Vitamin D,25 Hydroxy 52.4 ng/mL (30-100)
== END | disposition home or self-care (01) ==
LOC: MTLAB 10:08
PROVIDERS: PCP Internal Medicine; Referring Provider Internal Medicine; Visit Provider Internal Medicine
DX: M81.0 Age-related osteoporosis without current pathological fracture (principal); R73.09 Other abnormal glucose
CPT/HCPCS: 36415; 80053; 82043; 82306; 82570; 83036; 85025

== ENCOUNTER → 2025-10-18 | Outpatient (CLI) | payer MEDICARE, OTHER, SELFPAY ==
[2025-10-18 10:49] LABS: Mucous, Urine 0 SEEN /hpf (<or=2+); Red Blood Cells-Urine 0 SEEN /hpf (0-5)
[2025-10-18 10:52] LABS: Color, Urine Yellow (Yellow); Glucose, Dipstick Normal (Normal); Ketone-Dipstick Negative (Negative); Leukocyte Esterase-Dipstick 25 /ul (Negative); Nitrite-Dipstick Negative (Negative); Occult Blood-Urine Negative /ul (Negative); Protein-Dipstick Negative (Negative); Specific Gravity, Urine 1.010 (1.002-1.030); Urine Bilirubin Dipstick Negative (Negative)
[2025-10-18 10:56] LABS: Hematocrit 40.7 % (37-47); Hemoglobin 13.2 g/dL (12.0-15.0); Immature Granulocytes Count 0.030 X10^3/uL (0.0-0.0); Mean Corp Hgb Conc 32.4 g/dL (32-36); Mean Corpuscular Volume 89.8 fL (81-99); Mean Platelet Vol. 9.1 fl (6.2-12.0); NRBC Flagged by Analyzer 0 % (0-5); Platelet Count 268 K/mm3 (150-450); RBC Distribution Width CV 14.3 % (11.6-14.6); RBC Distribution Width SD 46.5 fl (35.1-43.9); Red Blood Count 4.53 M/mm3 (4.2-5.4); White Blood Count 5.7 K/mm3 (4.4-11.0)
[2025-10-18 10:58] LABS: Squamous Epithelial Cells - UA 0-5 SEEN /hpf (5-10)
[2025-10-18 11:12] LABS: Creatinine, Urine (random) 66.70 mg/dL (28.00-217.00); Microalbumin,Random Urine 21.7 mg/L (<20 mg/L)
[2025-10-18 11:31] LABS: AST(SGOT) 20 U/L (<=31); Alanine Aminotransfer ALT/SGPT 20 U/L (<=34); Albumin, Serum 4.1 g/dL (3.4-4.8); Alkaline Phosphatase 39 U/L (35-104); Anion Gap 9 (5-15); BUN 14 mg/dL (4-19); BUN/Creat Ratio 22.4 RATIO (10-20); Calcium,Total 9.4 mg/dL (7.6-11.0); Carbon Dioxide 23.6 mmol/L (21.0-32.0); Chloride 109 mmol/L (98-108); Globulin 2.1 g/dL (2.2-4.2); Glucose 116 mg/dL (70-99); Potassium 4.3 mmol/L (3.3-5.1); Vitamin B12 673 pg/mL (180-914)
[2025-10-18 12:41] LABS: FOLATES,SERUM (FOLIC ACID) 28.00 ng/mL (4.60-34.80)
== END | disposition home or self-care (01) ==
LOC: LABSPEC 10:45
PROVIDERS: PCP Internal Medicine; Referring Provider Internal Medicine; Visit Provider Internal Medicine
DX: R73.09 Other abnormal glucose (principal); K76.0 Fatty (change of) liver, not elsewhere classified; R53.83 Other fatigue
CPT/HCPCS: 80053; 81001; 82043; 82105; 82570; 82607; 82746; 85025